=== PATIENT | male | born 2000 | race Caucasian/White ===

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

== ENCOUNTER → 2022-05-30 | Outpatient (CLI) | payer OTHER, SELFPAY ==
--- NOTE | 2022-05-30 13:13 | RAD_ITS ---
INDICATION: HEADACHE EXAMINATION/TECHNIQUE: X-RAY - XR Spine Cervical 6 or More Views including flexion and extension COMPARISON: None. FINDINGS: VERTEBRAE: Preserved vertebral body height. No fracture. No spondylolisthesis. Preservation of the normal cervical lordosis. No significant facet arthropathy. DISCS: Disc spaces are maintained. NECK SOFT TISSUES: No prevertebral soft tissue widening. LUNG APICES: Clear. No gross instability upon flexion and extension RAD/Cerv Spine Obl/Flex/Ext Comp IMPRESSION: No evidence of acute fracture or spondylolisthesis. Electronically Signed: Jeremiah Keller MD at 18:53 EST ,
== END | disposition home or self-care (01) ==
LOC: MTRAD 13:12
PROVIDERS: PCP Family Medicine; Referring Provider Family Medicine; Visit Provider Family Medicine
DX: R51.9 Headache, unspecified (principal)
CPT/HCPCS: 72052